=== PATIENT | female | born 1990 | race American Indian/Alaskan Native ===

== ENCOUNTER 2022-02-26 08:09 | Emergency (ER) | payer MEDICAID ==
[2022-02-26 08:16] VITALS: BP 150/96
== END 2022-02-26 08:51 | disposition left against medical advice (07) ==
LOC: ED 08:09
DX: K12.2 Cellulitis and abscess of mouth (principal); Z53.21 Procedure and treatment not carried out due to patient leaving prior to being seen by health care provider